=== PATIENT | female | born 1945 | race Two or more races ===

== ENCOUNTER 2021-06-14 12:51 | Emergency (ER) | payer OTHER ==
[~2021-06-14] VITALS: Ht 160 cm; Wt 65.8 kg
[2021-06-14 14:01] LABS: Basophils # (auto) 0.1 10 ^3/uL (0-0.2); Basophils % (auto) 2.3 % (0.0-2.0); Eosinophils # (auto) 0.1 10 ^3/uL (0-0.8); Eosinophils % (auto) 1.9 % (0.0-7.0); Hematocrit 40.1 % (36.0-46.0); Hemoglobin 13.2 g/dL (12.2-16.2); Lymphocytes # (auto) 2.6 10 ^3/uL (0.4-5.4); Lymphocytes % (auto) 41.2 % (10.0-50.0); Mean Corpuscular Hemoglobin 29.2 pg (28.0-32.0); Mean Corpuscular Hgb Conc. 32.9 g/dL (32.0-36.0); Mean Corpuscular Volume 88.6 fL (80.0-100.0); Monocytes # (auto) 0.3 10 ^3/uL (0-1.3); Monocytes % (auto) 4.6 % (0.0-12.0); Neutrophils # (auto) 3.1 10 ^3/uL (1.6-8.6); Nucleated Red Blood Cells % 0.1 %; Red Blood Cells 4.52 10^6/uL (4.0-5.20); Red Cell Distribution Width 12.8 % (11.8-14.3); White Blood Cell 6.2 10^3/uL (4.4-10.8)
[2021-06-14 14:29] LABS: Albumin 3.9 g/dL (3.4-5.0); Calcium 9.3 mg/dL (8.5-10.1); Potassium 3.4 mmol/L (3.5-5.1)
[2021-06-14 14:33] LABS: BUN/Creatinine Ratio 25.9; Bilirubin, Total 0.4 mg/dL (0.2-1.0); Total Protein 7.4 g/dL (6.4-8.2)
[2021-06-14 16:16] VITALS: BP 132/81
== END 2021-06-14 16:19 | disposition home or self-care (01) ==
LOC: EDBD 12:51 → ER 12:51
DX: R51.9 Headache, unspecified (principal); F41.9 Anxiety disorder, unspecified; E78.5 Hyperlipidemia, unspecified; Z90.49 Acquired absence of other specified parts of digestive tract; Z90.710 Acquired absence of both cervix and uterus; Z90.89 Acquired absence of other organs; Z88.8 Allergy status to other drugs, medicaments and biological substances
CPT/HCPCS: 36415; 70450; 80053; 85025

== ENCOUNTER 2024-06-14 19:28 | Inpatient (IN) | payer OTHER, MEDICAID ==
[~2024-06-14] VITALS: Ht 152.4 cm; Wt 59.4 kg
[2024-06-14] MEDS: cefTRIAXone 1GM/50ML D5W 50 ML IV ONE (03:05)
[2024-06-14] MEDS: SODIUM CHLORIDE 0.9% 1,000 ML IV ONE (03:05)
[2024-06-14] MEDS: SODIUM CHLORIDE 0.9% 500 ML IVB ONE (03:05)
[2024-06-14] MEDS: ACETAMINOPHEN 325 MG TAB PO ONE (03:05)
[2024-06-14] MEDS: SODIUM CHLORIDE 0.9% 1,000 ML IV SCH (03:58)
[2024-06-14 20:18] LABS: Basophils # (auto) 0 10 ^3/uL (0-0.2); Basophils % (auto) 0.3 % (0.0-2.0); Eosinophils # (auto) 0 10 ^3/uL (0-0.8); Lymphocytes # (auto) 0.3 10 ^3/uL (0.4-5.4); Mean Corpuscular Volume 86.8 fL (80.0-100.0); Monocytes # (auto) 0 10 ^3/uL (0-1.3); Monocytes % (auto) 0.5 % (0.0-12.0); Neutrophils # (auto) 2.4 10 ^3/uL (1.6-8.6); Red Blood Cells 4.38 10^6/uL (4.0-5.20); White Blood Cell 2.8 10^3/uL (4.4-10.8)
[2024-06-14 20:33] LABS: Eosinophils % (auto) 1.3 % (0.0-7.0); Lymphocytes % (auto) 11.2 % (10.0-50.0); Mean Corpuscular Hemoglobin 29.6 pg (28.0-32.0); Mean Corpuscular Hgb Conc. 34.1 g/dL (32.0-36.0); Neutrophils % (auto) 86.7 % (37.0-80.0); Nucleated Red Blood Cells % 0.6 %; Platelet Count (auto) 189 10^3/uL (140-450); Red Cell Distribution Width 13.2 % (11.8-14.3)
[2024-06-14 20:35] LABS: Alanine Aminotransferase 42 U/L (7-40); Albumin 4.5 g/dL (3.2-4.8); Alkaline Phosphatase 159 U/L (46-116); Anion Gap 10 (5-15); Aspartate Aminotransferase 60 U/L (13-40); BUN/Creatinine Ratio 16.2 (10.0-20.0); Blood Urea Nitrogen 11 mg/dL (9-23); Calcium 9.6 mg/dL (8.7-10.4); Carbon Dioxide 25 mmol/L (20-31); Chloride 106 mmol/L (98-107); Glucose 84 mg/dL (74-106); Potassium 3.5 mmol/L (3.5-5.1); Sodium 141 mmol/L (136-145); Total Protein 7.4 g/dL (5.7-8.2)
[2024-06-14 20:52] LABS: Lactic Acid w/Reflex 3.6 mmol/L (0.4-2.0)
[2024-06-14] MEDS ORDERED: ONDANSETRON HCL 4 MG/2 ML VIAL IV PRN (23:15)
[2024-06-14] MEDS ORDERED: NITROGLYCERIN 0.4 MG SL TAB SL PRN (23:15)
[2024-06-14] MEDS ORDERED: MORPHINE SULFATE INJ 2 MG/ml SYRG IV PRN (23:15)
[2024-06-14] MEDS ORDERED: DOCUSATE SOD 100 MG CAP PO PRN (23:15)
[2024-06-15 02:54] LABS: Hematocrit 33.7 % (36.0-46.0); Hemoglobin 11.8 g/dL (12.2-16.2); Mean Corpuscular Hemoglobin 29.8 pg (28.0-32.0); Mean Corpuscular Volume 85.2 fL (80.0-100.0); Platelet Count (auto) 173 10^3/uL (140-450); Red Blood Cells 3.96 10^6/uL (4.0-5.20); Red Cell Distribution Width 13.3 % (11.8-14.3); White Blood Cell 13.6 10^3/uL (4.4-10.8)
[2024-06-15 02:57] LABS: Basophils % (manual) 0 (0.0-2.0); Blast Cells 0; Eosinophils % (manual) 0 (0-7); Metamyelocytes % 0; Myelocytes % 0; Promyelocytes % 0; Reactive Lymphocytes 0
[2024-06-15 03:00] LABS: Chloride 105 mmol/L (98-107); Potassium 2.9 mmol/L (3.5-5.1); Sodium 137 mmol/L (136-145)
[2024-06-15 03:01] LABS: Anion Gap 7 (5-15); Carbon Dioxide 25 mmol/L (20-31)
[2024-06-15 03:02] LABS: Calcium 9.3 mg/dL (8.7-10.4)
[2024-06-15 03:06] LABS: BUN/Creatinine Ratio 15.5 (10.0-20.0); Blood Urea Nitrogen 11 mg/dL (9-23); Glucose 127 mg/dL (74-106)
[2024-06-15 03:11] LABS: Lactic Acid w/Reflex 2.1 mmol/L (0.4-2.0)
[2024-06-15 03:45] VITALS: PULSE 101; RESP 23; O2SAT 96
[2024-06-15] MEDS: POTASSIUM CHL 20 Meq TABLET PO ONE (03:58)
[2024-06-15 04:09] LABS: Urine Bacteria FEW /hpf (None Seen); Urine Blood Negative /uL (Negative); Urine Clarity Clear (Clear); Urine Color Light-Yellow (Yellow); Urine Mucus FEW (None Seen); Urine Protein, UAD Negative (Negative); Urine Urobilinogen Normal (Negative); Urine WBC 9 /hpf (0 - 5)
[2024-06-15 04:21] LABS: COVID19 ANTIGEN SOFIA FIA NEGATIVE (NEGATIVE); Rapid Influenza A Negative (Negative); Rapid Influenza B Negative (Negative)
[2024-06-15 04:30] LABS: Band Neutrophils % (manual) 8; Lymphocytes % (manual) 2 (10.0-50.0); Monocytes % (manual) 10 (0-12)
[2024-06-15 04:31] LABS: Platelet Estimate Adequate
[2024-06-15 08:00] VITALS: PULSE 89; RESP 16; O2SAT 95
[2024-06-15] MEDS: ENOXAPARIN SOD 40 MG/0.4 ML SYRINGE SC SCH (11:00)
[2024-06-15] MEDS: ACETAMINOPHEN 325 MG TAB PO PRN (11:13)
[2024-06-15 17:46] VITALS: PULSE 72; RESP 18; O2SAT 98
[2024-06-15 18:24] VITALS: BP 116/71; PULSE 83; RESP 18; TEMP 98.1; O2SAT 91
[2024-06-15 20:00] VITALS: PULSE 89
[2024-06-15] MEDS: cefTRIAXone 1GM/50ML D5W 50 ML IV SCH (20:51)
[2024-06-15 21:00] VITALS: BP 123/60; PULSE 83; RESP 17; TEMP 98.7; O2SAT 95
[2024-06-15] MEDS: MELATONIN 5 MG TAB PO ONE (23:06)
[2024-06-16] VITALS (7 sets, daily range): BP systolic 119–138; BP diastolic 58–70; PULSE 67–77; RESP 18–20; TEMP 98.5–99.3; O2SAT 95–96
[2024-06-16 07:14] LABS: Basophils # (auto) 0.1 10 ^3/uL (0-0.2); Basophils % (auto) 0.5 % (0.0-2.0); Eosinophils # (auto) 0.4 10 ^3/uL (0-0.8); Hematocrit 31.9 % (36.0-46.0); Lymphocytes # (auto) 1.2 10 ^3/uL (0.4-5.4); Lymphocytes % (auto) 9.8 % (10.0-50.0); Mean Corpuscular Hemoglobin 29.9 pg (28.0-32.0); Mean Corpuscular Hgb Conc. 34.4 g/dL (32.0-36.0); Mean Corpuscular Volume 86.9 fL (80.0-100.0); Monocytes # (auto) 0.7 10 ^3/uL (0-1.3); Monocytes % (auto) 5.9 % (0.0-12.0); Neutrophils # (auto) 10.1 10 ^3/uL (1.6-8.6); Neutrophils % (auto) 80.8 % (37.0-80.0); Platelet Count (auto) 148 10^3/uL (140-450); Red Blood Cells 3.67 10^6/uL (4.0-5.20); Red Cell Distribution Width 13.7 % (11.8-14.3); White Blood Cell 12.5 10^3/uL (4.4-10.8)
[2024-06-16 07:33] LABS: Anion Gap 8 (5-15); Carbon Dioxide 24 mmol/L (20-31); Chloride 108 mmol/L (98-107); Potassium 3.4 mmol/L (3.5-5.1); Sodium 140 mmol/L (136-145)
[2024-06-16 07:34] LABS: Calcium 8.9 mg/dL (8.7-10.4)
[2024-06-16 07:39] LABS: BUN/Creatinine Ratio 22.4 (10.0-20.0); Blood Urea Nitrogen 11 mg/dL (9-23); Glucose 108 mg/dL (74-106)
[2024-06-16] MEDS: HYDROcodone-ACET 10/325MG TAB PO PRN (15:31)
[2024-06-16] MEDS: POTASSIUM CHL 20 Meq TABLET PO ONE (16:05)
[2024-06-17] VITALS (7 sets, daily range): BP systolic 121–140; BP diastolic 60–73; PULSE 66–78; RESP 16–18; TEMP 98–99.6; O2SAT 94–97
[2024-06-17 08:03] LABS: Chloride 107 mmol/L (98-107); Potassium 4.1 mmol/L (3.5-5.1); Sodium 138 mmol/L (136-145)
[2024-06-17 08:04] LABS: Anion Gap 6 (5-15); Calcium 9.1 mg/dL (8.7-10.4); Carbon Dioxide 25 mmol/L (20-31)
[2024-06-17 08:09] LABS: BUN/Creatinine Ratio 19.6 (10.0-20.0); Basophils # (auto) 0.1 10 ^3/uL (0-0.2); Basophils % (auto) 0.6 % (0.0-2.0); Blood Urea Nitrogen 10 mg/dL (9-23); Eosinophils # (auto) 0.5 10 ^3/uL (0-0.8); Eosinophils % (auto) 4.7 % (0.0-7.0); Glucose 102 mg/dL (74-106); Hematocrit 29.1 % (36.0-46.0); Lymphocytes # (auto) 1.8 10 ^3/uL (0.4-5.4); Lymphocytes % (auto) 18.2 % (10.0-50.0); Mean Corpuscular Hemoglobin 29.8 pg (28.0-32.0); Mean Corpuscular Hgb Conc. 34.5 g/dL (32.0-36.0); Mean Corpuscular Volume 86.5 fL (80.0-100.0); Monocytes # (auto) 0.8 10 ^3/uL (0-1.3); Monocytes % (auto) 8.1 % (0.0-12.0); Neutrophils # (auto) 6.8 10 ^3/uL (1.6-8.6); Neutrophils % (auto) 68.4 % (37.0-80.0); Platelet Count (auto) 162 10^3/uL (140-450); Red Blood Cells 3.36 10^6/uL (4.0-5.20); Red Cell Distribution Width 13.4 % (11.8-14.3)
[2024-06-18] VITALS (8 sets, daily range): BP systolic 107–141; BP diastolic 53–70; PULSE 57–84; RESP 17–19; TEMP 97.9–98.7; O2SAT 91–97
[2024-06-18 05:32] LABS: Basophils # (auto) 0.1 10 ^3/uL (0-0.2); Basophils % (auto) 0.7 % (0.0-2.0); Eosinophils # (auto) 0.5 10 ^3/uL (0-0.8); Eosinophils % (auto) 6.1 % (0.0-7.0); Hematocrit 29.8 % (36.0-46.0); Hemoglobin 10.5 g/dL (12.2-16.2); Lymphocytes % (auto) 26.6 % (10.0-50.0); Mean Corpuscular Hgb Conc. 35.1 g/dL (32.0-36.0); Mean Corpuscular Volume 85.6 fL (80.0-100.0); Monocytes # (auto) 0.8 10 ^3/uL (0-1.3); Neutrophils # (auto) 4.3 10 ^3/uL (1.6-8.6); Neutrophils % (auto) 56.6 % (37.0-80.0); Nucleated Red Blood Cells % 0.1 %; Platelet Count (auto) 193 10^3/uL (140-450); Red Blood Cells 3.48 10^6/uL (4.0-5.20); Red Cell Distribution Width 13.7 % (11.8-14.3); White Blood Cell 7.6 10^3/uL (4.4-10.8)
[2024-06-18 05:33] LABS: Chloride 106 mmol/L (98-107); Potassium 3.8 mmol/L (3.5-5.1); Sodium 137 mmol/L (136-145)
[2024-06-18 05:34] LABS: Anion Gap 6 (5-15); Calcium 9.4 mg/dL (8.7-10.4); Carbon Dioxide 25 mmol/L (20-31)
[2024-06-18 05:39] LABS: Blood Urea Nitrogen 9 mg/dL (9-23); Glucose 116 mg/dL (74-106)
[2024-06-18] MEDS: cefTRIAXone 2GM/50ML D5W 50 ML IV SCH (10:04)
[2024-06-18] MEDS ORDERED: CEFD300C2 PO (16:45)
[2024-06-18] MEDS ORDERED: ATOR20TA50 PO (16:46)
[2024-06-18] MEDS ORDERED: ASPI-543 PO (16:46)
[2024-06-19 01:00] VITALS: BP 131/59; PULSE 61; RESP 18; TEMP 98.7; O2SAT 96
[2024-06-19 05:00] VITALS: BP 139/68; PULSE 63; RESP 18; TEMP 97.5; O2SAT 97
[2024-06-19 06:33] LABS: Basophils # (auto) 0.1 10 ^3/uL (0-0.2); Basophils % (auto) 0.7 % (0.0-2.0); Eosinophils # (auto) 0.5 10 ^3/uL (0-0.8); Eosinophils % (auto) 4.8 % (0.0-7.0); Hematocrit 32.3 % (36.0-46.0); Hemoglobin 11.2 g/dL (12.2-16.2); Lymphocytes # (auto) 2.6 10 ^3/uL (0.4-5.4); Lymphocytes % (auto) 26.7 % (10.0-50.0); Mean Corpuscular Hemoglobin 29.7 pg (28.0-32.0); Mean Corpuscular Hgb Conc. 34.6 g/dL (32.0-36.0); Mean Corpuscular Volume 85.8 fL (80.0-100.0); Monocytes % (auto) 10.4 % (0.0-12.0); Neutrophils # (auto) 5.6 10 ^3/uL (1.6-8.6); Neutrophils % (auto) 57.4 % (37.0-80.0); Nucleated Red Blood Cells % 0.1 %; Platelet Count (auto) 246 10^3/uL (140-450); Red Blood Cells 3.76 10^6/uL (4.0-5.20); Red Cell Distribution Width 13.4 % (11.8-14.3); White Blood Cell 9.7 10^3/uL (4.4-10.8)
[2024-06-19 06:49] LABS: Chloride 103 mmol/L (98-107); Potassium 3.9 mmol/L (3.5-5.1); Sodium 136 mmol/L (136-145)
[2024-06-19 06:50] LABS: Anion Gap 8 (5-15); Calcium 9.6 mg/dL (8.7-10.4); Carbon Dioxide 25 mmol/L (20-31)
[2024-06-19 06:55] LABS: BUN/Creatinine Ratio 27.3 (10.0-20.0); Blood Urea Nitrogen 15 mg/dL (9-23); Glucose 119 mg/dL (74-106)
[2024-06-19 08:00] VITALS: PULSE 71; PULSE 85; RESP 22
[2024-06-19 09:00] VITALS: BP_SYST 128; BP_SYST 160; BP_DIAS 72; BP_DIAS 81; PULSE 85; RESP 22; TEMP 97.8; O2SAT 92
[2024-06-19 12:20] VITALS: BP 128/72; PULSE 85; RESP 22; TEMP 97.8; O2SAT 92
== END 2024-06-19 13:05 | disposition home health service (06) | DRG 871 ==
LOC: EDUNIT# 19:28 → EDSEX 19:28 → ER 19:28 → EDBD 19:28 → TELE 23:26 → TELE-EAST 06-15 17:50
PROVIDERS: ADMIT Nurse Practitioner Family; ATTEND Nurse Practitioner Family
DX: A41.50 Gram-negative sepsis, unspecified (principal); G93.41 Metabolic encephalopathy; N39.0 Urinary tract infection, site not specified; R65.20 Severe sepsis without septic shock; E78.5 Hyperlipidemia, unspecified; Z20.822 Contact with and (suspected) exposure to COVID-19; I10 Essential (primary) hypertension; R74.01 Elevation of levels of liver transaminase levels; Z85.038 Personal history of other malignant neoplasm of large intestine; Z90.710 Acquired absence of both cervix and uterus; Z90.49 Acquired absence of other specified parts of digestive tract; Z88.8 Allergy status to other drugs, medicaments and biological substances; Z86.73 Personal history of transient ischemic attack (TIA), and cerebral infarction without residual deficits; Z80.42 Family history of malignant neoplasm of prostate; Z83.3 Family history of diabetes mellitus
CPT/HCPCS: 36415; 70450; 70551; 71045; 76705; 76775; 80048; 80053; 81001; 83605; 85007; 85025; 85027; 87040; 87077; 87086; 87088; 87186; 87426; 87804; 93005; 96365; 97163; 99291; G0378

== ENCOUNTER 2025-01-04 12:17 | Inpatient (IN) | payer OTHER, MEDICAID ==
[~2025-01-04] VITALS: Ht 152.4 cm; Wt 60.1 kg
[~2025-01-04 12:17] MED LIST: ASPI-543 PO; ATOR20TA50 PO; CEFD300C2 PO
--- NOTE | 2025-01-04 12:38 | ED.PDOC ---
HPI (NEURO) HPI Comments 79 year old female brought in by grandpriscilla presents to the ED with chief complaint of R facial numbness and weakness. Patient reports that since last night at 10:30pm, she has been experiencing right sided facial droop and numbness with associated right ear pain, right upper and lower extremity weakness. 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 Patient notes that for the last 2 days she has had right sided ear pain, but it has since resolved. Patient states that she is now experiencing a headache as of today. Patient denies any chest pain, SOB, LOC, dizziness, hearing loss, vision loss, nausea, or vomiting. Time Seen by MD: 12:33 Primary Care Provider: PHAM Dela Cruz Notes: Nurses Notes, Medications, Allergies Information Source: Patient, Relative Mode of Arrival: Wheelchair Severity: Moderate Dizziness/Weakness Severity: Unable to do activities Timing: Hours Duration: Since onset Headache Quality: Aching Headache Location: Generalized Weakness Location: (R) Sided, Facial Numbness Location: Facial Onset: At rest Circumstances: Spontaneous Symptoms: Weakness, Numbness Before: Normal History of: CVA, Hypertension Modifying factors: Nothing Associated Signs and Symptoms: Headache, Weakness, Numbness Past Medical History PAST MEDICAL HISTORY: Cancer, CVA, GERD, High Lipids, HTN, UTI'S Surgical History: Appendectomy, Hysterectomy, Tonsillectomy Surgical History (Other): Colon surgery MANAGER INTEL History: Denies all MANAGER INTEL Hx Family History Family History: Reviewed,noncontributory to illness, Family hx of Cancer Social History Smoker: Non-Smoker Alcohol: Denies ETOH Use Drugs: Denies Drug Use Lives In: Home Constitutional: denies: chills, diaphoresis, fatigue, fever, malaise, sweats, weakness, others EENTM: reports: ear pain; denies: blurred vision, double vision, ear bleeding, ear discharge, ear drainage, ear ringing, eye pain, eye redness, hearing loss, mouth pain, mouth swelling, nasal discharge, nose bleeding, nose congestion, nose pain, photophobia, tearing, throat pain, throat swelling, voice changes, others Respiratory: denies: cough, hemoptysis, orthopnea, SOB at rest, shortness of breath, SOB with excertion, stridor, wheezing, others Cardiovascular: denies: chest pain, dizzy spells, diaphoresis, Dyspnea on exertion, edema, irregular heart beat, left arm pain, lightheadedness, palpitations, PND, syncope, others Gastrointestinal: denies: abdomen distended, abdominal pain, blood streaked bowels, constipated, diarrhea, dysphagia, difficulty swallowing, hematemesis, melena, nausea, poor appetite, poor fluid intake, rectal bleeding, rectal pain, vomiting, others Genitourinary: denies: abnormal vagina bleeding, burning, dyspareunia, dysuria, flank pain, frequency, hematuria, incontinence, pain, , vagina discharge, urgency, others Neurological: reports: headache, right sided numbness, right sided weakness, others (Facial droop); denies: dizziness, fainting, left sided numbness, left sided weakness, numbness, paresthesia, pre-existing deficit, seizure, speech problems, tingling, tremors, weakness Musculoskeletal: denies: back pain, gout, joint pain, joint swelling, muscle pain, muscle stiffness, neck pain, others Integumetry: denies: bruises, change in color, change in hair/nails, dryness, laceration, lesions, lumps, rash, wounds, others Allergic/Immunocompromised: denies: Difficulty Healing, Frequent Infections, Hives, Itching, others Hematologic/Lymphatic: denies: anemia, blood clots, easy bleeding, easy bruis ing, swollen glands, others Endocrine: denies: excessive hunger, excessive sweating, excessive thirst, exc essive urination, flushing, intolerance to cold, intolerance to heat, unexplained weight gain, unexplained weight loss, others Psychiatric: denies: anxiety, bipolar disorder, depression, hopeless, panic disorder, schizophrenia, sleepless, suicidal, others All Other Systems: Reviewed and Negative Physical Exam General Appearance: No Apparent Distress HEENT: PERRL/EOMI, Other (Right facial droop) Neck: Full Range of Motion, Non-Tender, Normal Inspection, Supple Respiratory: Lungs Clear, No Accessory Muscle Use, No Respiratory Distress, Normal Breath Sounds Cardiovascular: No Edema, No JVD, Regular Rate/Rhythm Breast Exam: Deferred Gastrointestinal: Non Tender, Soft Genitalia: Deferred Pelvic: Deferred Rectal: Deferred Extremities: Normal inspection, Normal range of motion, Non-tender, No pedal edema Musculoskeletal : Apperance: Normal Neurologic: Alert (Oriented x4), community fundraiser II-XII nml as Tested (Except for cranial nerve 7. Right facial weakness. No forehead sparing, patient unable to raise right eyebrow. Right eyelid ptosis.), Motor Weakness (Subtle right upper and lower extremity weakness as compared to the left upper and lower extremities. Left upper extremity pronator drift. Right lower extremity drift.), Normal Affect, Normal Mood, No Sensory Deficits Cerebellar Function: NOT DONE Reflexes: NOT DONE Skin: Dry, Normal Color, Warm Lymphatic: NOT DONE EKG EKG : Comments Sinus tach, rate 106, intervals, left axis deviation, possible old inferior infarct, nonspecific T changes. Was a procedure done? Was a procedure done?: No Differential Diagnosis (SZ) Seizure: CVA/TIA, Hypocalcemia, Hypoglycemia, Hyponatremia CVA: Franco's Palsy, Encephalopathy, Mass Lesion General Weakness: Dysrhythmia Headache: Epidural Hemorrhage, Intracerebral Hemorrhage, Subarachnoid Hemorrhage, Subdural Hemorrhage X-Ray, Labs, Meds, VS Vital Signs Date Time Temp Pulse Resp B/P (MAP) Pulse Ox O2 Delivery O2 Flow Rate FiO2 01/04/25 15:00 78 13 126/69 (88) 92 01/04/25 14:06 90 17 145/77 (99) 93 01/04/25 12:56 Room Air* 0 21 01/04/25 12:56 99.6 90 14 136/79 (98) 96 99.6 01/04/25 12:22 106 01/04/25 12:17 99.6 60 18 157/78 (104) 98 99.6 Lab Test 01/04/25 15:10 01/04/25 13:18 01/04/25 12:58 Range/Units Troponin I High Sensitivity 7 6 </=34 ng/L Urine Color Light-yellow Yellow Urine Clarity Clear Clear Urine pH 6.5 5.0-9.0 Urine Specific Mozelle 1.008 1.001-1.035 Urine Protein Negative Negative Urine Ketones Trace Negative Urine Blood Negative Negative /uL Urine Nitrite 2+ H Negative Urine Bilirubin Negative Negative Urine Urobilinogen Normal Negative mg/dL Urine Leukocyte Esterase Negative Negative /uL Urine RBC None seen 0 - 4 /hpf Urine Microscopic WBC 2 0-5 /HPF Urine Squamous Epithelial Cells None seen <5 /hpf Urine Bacteria Few H None Seen /hpf Urine Glucose Normal Normal mg/dL White Blood Count 7.1 4.4-10.8 10^3/uL Red Blood Count 4.87 4.0-5.20 10^6/uL Hemoglobin 14.4 12.2-16.2 g/dL Hematocrit 42.3 36.0-46.0 % Mean Corpuscular Volume 86.8 80.0-100.0 fL Mean Corpuscular Hemoglobin 29.6 28.0-32.0 pg Mean Corpuscular Hemoglobin Concent 34.1 32.0-36.0 g/dL Red Cell Distribution Width 13.7 11.8-14.3 % Platelet Count 263 140-450 10^3/uL Mean Platelet Volume 8.0 6.9-10.8 fL Neutrophils (%) (Auto) 45.2 37.0-80.0 % Lymphocytes (%) (Auto) 42.9 10.0-50.0 % Monocytes (%) (Auto) 4.9 0.0-12.0 % Eosinophils (%) (Auto) 4.8 0.0-7.0 % Basophils (%) (Auto) 2.2 H 0.0-2.0 % Neutrophils # (Auto) 3.2 1.6-8.6 10 ^3/uL Lymphocytes # (Auto) 3.0 0.4-5.4 10 ^3/uL Monocytes # (Auto) 0.4 0-1.3 10 ^3/uL Eosinophils # (Auto) 0.3 0-0.8 10 ^3/uL Basophils # (Auto) 0.2 0-0.2 10 ^3/uL Nucleated Red Blood Cells 0.1 % Sodium Level 139 136-145 mmol/L Potassium Level 3.8 3.5-5.1 mmol/L Chloride Level 104 98-107 mmol/L Carbon Dioxide Level 26 20-31 mmol/L Anion Gap 9 5-15 Blood Urea Nitrogen 13 9-23 mg/dL Creatinine 0.61 0.550-1.02 mg/dL Glomerular Filtration Rate Calc 90 >90 mL/min BUN/Creatinine Ratio 21.3 H 10.0-20.0 Serum Glucose 110 H 74-106 mg/dL Calcium Level 10.3 8.7-10.4 mg/dL Total Bilirubin 0.6 0.2-1.0 mg/dL Aspartate Amino Transferase (AST) 22 13-40 U/L Alanine Aminotransferase (ALT) 25 7-40 U/L Alkaline Phosphatase 88 46-116 U/L B-Type Natriuretic Peptide 7.03 0-100 pg/mL Total Protein 8.0 5.7-8.2 g/dL Albumin 5.1 H 3.2-4.8 g/dL Current Medications Medications (Trade) Dose Ordered Sig/Abdirahman Route Start Time Stop Time Status Last Admin Acetaminophen (Tylenol Tablet Or Capsule) 1,000 mg ONCE ONCE PO 01/04/25 12:45 01/04/25 12:46 DC 01/04/25 13:24 Aspirin 325 mg ONCE ONCE PO 01/04/25 13:00 01/04/25 13:01 DC 01/04/25 13:24 CT Head CVA: FINDINGS: There is no acute intracranial hemorrhage. No mass effect or midline shift. Chronic appearing bilateral basal ganglia lacunar infarcts are stable. Encephalomalacia in the left frontal lobe appears stable. Scattered areas of hypoattenuation are seen in the periventricular and subcortical white matter, which are nonspecific but most likely sequelae of small vessel ischemic disease. The ventricles and sulci are within normal limits in size for age. Basal cisterns are patent. The calvarium is unremarkable. Mild mucosal thicke bear of the paranasal sinuses. Mastoid air cells are clear. IMPRESSION: 1. No CT evidence of acute intracranial abnormality. 2. Nonacute findings as described above. Chest XR: IMPRESSION: No acute intrathoracic abnormality. CT Angio Head/Neck: IMPRESSION: No acute abnormal CT angiographic findings of the head and neck without stenosis or occlusion seen. X-Ray, Labs, Meds, VS Comment 79-year-old female with history of prior CVA and residual right lower extremity weakness dyslipidemia, hypertension and GERD brought in by family for evaluation of right facial weakness since around 2229 yesterday Vitals remarkable for temperature 99.6, BP 157/78 Exam remarkable for non forehead sparing right facial droop, right eyelid ptosis, left pronator drift, right upper and lower extremity subtle weakness, right lower extremity drift Rhythm strip independently interpreted by me: Sinus tach, rate 106, no ectopy. CT head, chest x-ray, and CT angio head and neck unremarkable CBC, CMP, BNP and 2 serial troponins unremarkable for any abnormality of acute significance. UA abnormal consistent with mild UTI Patient treated with the following in the ED: Code stroke was initiated, the patient was evaluated by stroke neurologist on video. I discussed the case with her. She recommended CT angio head and neck, and hospital admission for brain MRI. 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 Tylenol 1 g p.o., Aspirin 325 mg p.o., Rocephin 1 g IV On re-evaluation, there are no new neurologic changes. Vitals were stable. Plan is to admit the patient for MRI of the brain and neurology evaluation. Case discussed with Dr. Geronimo, who will admit the patient. Images Reviewed?: Images reviewed and evaluated by me Time of 1ST Reevaluation: 13:33 Reevaluation 1ST: Unchanged Patient Education/Counseling: Diagnosis, Treatment Family Education/Counseling: Diagnosis, Treatment Additional Information -Reviewed patient's previous visit(s): 06/14/24 for fever - The following tests were ordered, and results were reviewed by me: CBC, CMP, BNP, UA, Troponin, EKG, Chest XR, CT Head CVA, CT Angio Head/neck - Additional information was gathered from interviewing the following independent Historian: tello - I reviewed and agreed with the following test results read by other provider: Chest XR, CT Head CVA, CT Angio Head/neck - I discussed treatments and results with medical personnel and: patient and gr bereniceson Comprehensive systems review obtained and negative except for what is stated in the HPI. Departure 1 Departure Time of Disposition: 16:43 Impression: Primary Impression: Acute CVA (cerebrovascular accident) Additional Impression: UTI (urinary tract infection) Qualified Codes: N39.0 - Urinary tract infection, site not specified Disposition: 09 ADMITTED INPATIENT Admit to: Tele Condition: Guarded Critical Care Note Critical Care Time?: Yes (35 min-critical care time only) Critical care comment: Critical care time including multiple bedside re-evaluations, review of lab and imaging studies, and discussion of the case with the admitting and consulting providers. Patient is high risk for neurologic decompensation. Stability Stability form required: No Heart Score Heart Score: Heart Score Response (Comments) Value History N/A 0 EKG N/A 0 Age N/A 0 Risk Factors N/A 0 Troponin N/A 0 Total 0 I personally scribed for TYRON GUZMAN MD ([facility] on 4/19/25 at 12:38. Electronically submitted by Jf Anthony ([email or web address]). I personally scribed for TYRON GUZMAN MD ([email or web address]) on 01/04/25 at 12:59. Electronically submitted by Jf Anthony ([email or web address]). I personally scribed for TYRON GUZMAN MD ([email or web address]) on 01/04/25 at 13:17. Electronically submitted by Jf Anthony ([email or web address]). I personally scribed for TYRON GUZMAN MD ([email or web address]) on 01/04/25 at 14:12. Electronically submitted by Jf Anthony ([email or web address]). I personally scribed for TYRON GUZMAN MD ([email or web address]) on 01/04/25 at 14:35. Electronically submitted by Jf Anthony ([email or web address]). TYRON GUZMAN MD Jan 04, 2025 12:38
--- NOTE | 2025-01-04 13:06 | DVHINCON2 ---
Date of Consultation Date Date: 01/04/25 [facility] # Demographics Consult Type: Acute Stroke Level 2 (4.5-24 hrs) Patient Location: Emergency Room First Name: arnulfo Last Name: saturnino Date of : 1945 Age: 79 Gender: Female Facility: [facility] Time of Initial Page (): 01/04/2025 12:54 Time of Return Call (): 01/04/2025 12:54 # HPI Chief Complaint: - weakness (focal) History: 79yof with previous stroke (2007, mild RLE weakness) who p/w R sided weakness. Last Known Normal: - I have collected independent history specific to time last normal or last known well. We have collaborated with the provider and at this time, we have the most current timeline with the information that is available. 10PM on 01/03/25 # Scores Time of exam and NIHSS (): 01/04/2025 12:57 Level of Consciousness 1a: [0] = Alert; keenly responsive LOC Questions 1b: [0] = Answers both questions correctly LOC Commands 1c: [0] = Performs both tasks correctly Best Gaze 2: [0] = Normal Visual 3: [0] = No visual loss Facial Palsy 4: [2] = Partial paralysis Motor Arm Left 5a: [0] = No drift Motor Arm Right 5b: [0] = No drift Motor Leg Left 6a: [0] = No drift Motor Leg Right 6b: [1] = Drift Limb Ataxia 7: [0] = Absent Sensory 8: [0] = Normal Best Language 9: [0] = No aphasia Dysarthria 10: [1] = [id number] dysarthria Extinction and Inattention 11: [0] = No abnormality NIHSS Total: 4 # Exam Cranial Nerves: Forehead weakness in addition to facial palsy # ROS Eyes: - no diplopia ENT: - no difficulty swallowing # Data Time Head CT personally read by me (): 01/04/2025 12:[address]: - no bleed - preliminarily reviewed by me, please refer to radiology read for official reading L BG infarct # 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 Patient also has forehead involvement but endorses worsening extremity weakness which is not typical for Franco's Palsy. Recommend MR brain for further workup, if stroke on MRI would proceed with all the rest of stroke workup including TTE with bubble, telemetry monitoring, lipid panel, A1c. 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 treatment (Prednisone 60mg x 5 days followed by a 5 day taper by 10mg per day and Valacyclovir 1000mg TID x 1 week (or acyclovir 400mg 5x a day for 1 week)) # Plan Thrombolytic/Intervention: NOT IV Thrombolysis or IA Intervention candidate Thrombolytic Exclusion: > 4.5 hours Intraarterial Exclusion: - clinical exam not consistent with presence of large vessel occlusion (LVO), can reconsider if LVO found on vascular imaging Labs: Full infectious and metabolic workup for causes of recrudescence Imaging: (urgency: STAT): - CT Angiogram Head and CT Angiogram Neck AND call back with results if abnormal Imaging: (urgency: routine): - MRI Brain without contrast Other: - If patient has any neurological deterioration please call me back immediately # Logistics Attestation of consult completion: The patient is located at: [facility]. Facility staff participated in the visit. I performed this telemedicine visit from my offsite office utilizing interactive 2 way audio and visual telecommunication technology. Total time spent in telemedicine encounter: I spent 24 minutes reviewing clinical data and/or imaging, obtaining history, examining the patient, communicating with the onsite care team, and in preparation of this report. # Demographics First Name: arnulfo Last Name: saturnino Facility: [facility] History of Present Illness History of Present Illness Arnulfo Mejia is a 79 year old female who presents with Family History Family History Family History: Patient reports no known family medical history. Allergies: Coded Allergies: Clopidogrel (Verified Allergy, Severe, 06/14/21) Home Meds Active Scripts Atorvastatin Calcium (ATORVASTATIN CALCIUM) 20 Mg Tab, 1 TAB PO DAILY, #60 TAB 5 Refills Prov:TAMMIE MILLER MD 06/18/24 Aspirin (Aspir-Low) 81 Mg Tab, 81 MG PO DAILY, #60 TAB Prov:TAMMIE MILLER MD 06/18/24 Cefdinir (Cefdinir) 300 Mg Cap, 1 CAP PO BID for 10 Days, #20 CAP Prov:TAMMIE MILLER MD 06/18/24 Physical Examination General Examination: Last Vital sign Vital Signs Date Time Temp Pulse Resp B/P (MAP) Pulse Ox O2 Delivery O2 Flow Rate FiO2 01/04/25 12:22 106 General: General: No apparent distress, appears comfortable. Cooperative. Neurological Examination: Neurological Examination: Mental Status: Cranial Nerves: Motor Examination: Reflexes: Sensory: Coordination: Gait: Assessment/Plan Assessment/Plan [facility] # Demographics Consult Type: Acute Stroke Level 2 (4.5-24 hrs) Patient Location: Emergency Room First Name: arnulfo Last Name: saturnino Date of : 1945 Age: 79 Gender: Female Facility: [facility] Time of Initial Page (): 01/04/2025 12:54 Time of Return Call (): 01/04/2025 12:54 # HPI Chief Complaint: - weakness (focal) History: 79yof with previous stroke (2007, mild RLE weakness) who p/w R sided weakness. Last Known Normal: - I have collected independent history specific to time last normal or last known well. We have collaborated with the provider and at this time, we have the most current timeline with the information that is available. 10PM on 01/03/25 # Scores Time of exam and NIHSS (): 01/04/2025 12:57 Level of Consciousness 1a: [0] = Alert; keenly responsive LOC Questions 1b: [0] = Answers both questions correctly LOC Commands 1c: [0] = Performs both tasks correctly Best Gaze 2: [0] = Normal Visual 3: [0] = No visual loss Facial Palsy 4: [2] = Partial paralysis Motor Arm Left 5a: [0] = No drift Motor Arm Right 5b: [0] = No drift Motor Leg Left 6a: [0] = No drift Motor Leg Right 6b: [1] = Drift Limb Ataxia 7: [0] = Absent Sensory 8: [0] = Normal Best Language 9: [0] = No aphasia Dysarthria 10: [1] = [id number] dysarthria Extinction and Inattention 11: [0] = No abnormality NIHSS Total: 4 # Exam Cranial Nerves: Forehead weakness in addition to facial palsy # ROS Eyes: - no diplopia ENT: - no difficulty swallowing # Data Time Head CT personally read by me (): 01/04/2025 12:[address]: - no bleed - preliminarily reviewed by me, please refer to radiology read for official reading L BG infarct # 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 Patient also has forehead involvement but endorses worsening extremity weakness which is not typical for Franco's Palsy. Recommend MR brain for further workup, if stroke on MRI would proceed with all the rest of stroke workup including TTE with bubble, telemetry monitoring, lipid panel, A1c. 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 treatment (Prednisone 60mg x 5 days followed by a 5 day taper by 10mg per day and Valacyclovir 1000mg TID x 1 week (or acyclovir 400mg 5x a day for 1 week)) # Plan Thrombolytic/Intervention: NOT IV Thrombolysis or IA Intervention candidate Thrombolytic Exclusion: > 4.5 hours Intraarterial Exclusion: - clinical exam not consistent with presence of large vessel occlusion (LVO), can reconsider if LVO found on vascular imaging Labs: Full infectious and metabolic workup for causes of recrudescence Imaging: (urgency: STAT): - CT Angiogram Head and CT Angiogram Neck AND call back with results if abnormal Imaging: (urgency: routine): - MRI Brain without contrast Other: - If patient has any neurological deterioration please call me back immediately # Logistics Attestation of consult completion: The patient is located at: [facility]. Facility staff participated in the visit. I performed this telemedicine visit from my offsite office utilizing interactive 2 way audio and visual telecommunication technology. Total time spent in telemedicine encounter: I spent 24 minutes reviewing clinical data and/or imaging, obtaining history, examining the patient, communicating with the onsite care team, and in preparation of this report. # Demographics First Name: arnulfo Last Name: saturnino Facility: [facility] Plan discussed with: Patient SONIA CAMPA MD Jan 04, 2025 13:06
--- NOTE | 2025-01-04 13:12 | DVH ---
CLINICAL INFORMATION: 79 years old, Female; rule out stroke. TECHNIQUE: Axial imaging was obtained through the brain without contrast. Coronal and sagittal reform atted images were obtained, reviewed, and stored. Images were reviewed in brain and bone windows. Al l CT scans at this medical facility are performed using dose modulation techniques as appropriate to a performed exam including the following: Automated exposure control was utilized; adjustment of the MA and/or KV according to patient size; and use of iterative reconstruction technique. CTDIvol = 66.2 mGy DLP = 1171.85 mGy-cm COMPARISON: CT head dated 06/15/2024 and MRI dated 06/18/2024 FINDINGS: There is no acute intracranial hemorrhage. No mass effect or midline shift. Chronic appeari ng bilateral basal ganglia lacunar infarcts are stable. Encephalomalacia in the left frontal lobe oleg ears stable. Scattered areas of hypoattenuation are seen in the periventricular and subcortical white matter, which are nonspecific but most likely sequelae of small vessel ischemic disease. The ventric les and sulci are within normal limits in size for age. Basal cisterns are patent. The calvarium is unremarkable. Mild mucosal thickening of the paranasal sinuses. Mastoid air cells are clear. IMPRESSION: 1. No CT evidence of acute intracranial abnormality. 2. Nonacute findings as described above.
[2025-01-04 13:16] LABS: Basophils # (auto) 0.2 10 ^3/uL (0-0.2); Basophils % (auto) 2.2 % (0.0-2.0); Eosinophils # (auto) 0.3 10 ^3/uL (0-0.8); Eosinophils % (auto) 4.8 % (0.0-7.0); Hematocrit 42.3 % (36.0-46.0); Hemoglobin 14.4 g/dL (12.2-16.2); Lymphocytes % (auto) 42.9 % (10.0-50.0); Mean Corpuscular Hemoglobin 29.6 pg (28.0-32.0); Mean Corpuscular Hgb Conc. 34.1 g/dL (32.0-36.0); Mean Corpuscular Volume 86.8 fL (80.0-100.0); Monocytes # (auto) 0.4 10 ^3/uL (0-1.3); Monocytes % (auto) 4.9 % (0.0-12.0); Neutrophils # (auto) 3.2 10 ^3/uL (1.6-8.6); Neutrophils % (auto) 45.2 % (37.0-80.0); Nucleated Red Blood Cells % 0.1 %; Platelet Count (auto) 263 10^3/uL (140-450); Red Blood Cells 4.87 10^6/uL (4.0-5.20); Red Cell Distribution Width 13.7 % (11.8-14.3); White Blood Cell 7.1 10^3/uL (4.4-10.8)
[2025-01-04] MEDS: ACETAMINOPHEN 500 MG TAB or CAP PO ONE (13:24)
[2025-01-04] MEDS: ASPirin 325 MG TAB PO ONE (13:24)
[2025-01-04 13:36] LABS: Alanine Aminotransferase 25 U/L (7-40); Alkaline Phosphatase 88 U/L (46-116); Anion Gap 9 (5-15); Aspartate Aminotransferase 22 U/L (13-40); BUN/Creatinine Ratio 21.3 (10.0-20.0); Blood Urea Nitrogen 13 mg/dL (9-23); Calcium 10.3 mg/dL (8.7-10.4); Carbon Dioxide 26 mmol/L (20-31); Chloride 104 mmol/L (98-107); Potassium 3.8 mmol/L (3.5-5.1); Sodium 139 mmol/L (136-145)
[2025-01-04 13:37] LABS: Bilirubin, Total 0.6 mg/dL (0.2-1.0)
[2025-01-04 13:39] LABS: Albumin 5.1 g/dL (3.2-4.8); Glucose 110 mg/dL (74-106)
[2025-01-04 13:40] LABS: Urine Bacteria FEW /hpf (None Seen); Urine Blood Negative /uL (Negative); Urine Clarity Clear (Clear); Urine Protein, UAD Negative (Negative); Urine Specific Gravity 1.008 (1.001-1.035); Urine Squamous Epithelial Cell None Seen /hpf (<5); Urine Urobilinogen Normal (Negative); Urine WBC 2 /HPF (0-5); Urine pH 6.5 (5.0-9.0)
--- NOTE | 2025-01-04 13:40 | ECG ---
[facility] Heart Test Date: 2025-01-04 Test Time: 12:22:55 Pat Name: KEM LORA Department: ER Room: Gender: F Aviculturist: AMRIT : 1945 Requested By: TYRON SPENCE Order Number: [id number] Reading MD: Measurements Intervals Sylvia Rate: 106 P: 45 NJ: 150 QRS: -19 QRSD: 103 T: 66 QT: 343 QTc: 456 Interpretive Statements Sinus tachycardia Inferior infarct, old Consider anterior infarct Baseline wander in lead(s) I,V5 Please click the below link to view image of tracing.
[2025-01-04 13:42] LABS: Urine Color Light-Yellow (Yellow)
--- NOTE | 2025-01-04 13:43 | DVH ---
XY CHEST PORTABLE, HISTORY: L facial weakness COMPARISON: XY CHEST PORTABLE on DOS: 06/14/24 XY CHEST PORTABLE on DOS: 06/14/24 TECHNICAL DATA: 1 view of the chest was obtained. FINDINGS: Lines and tubes: None Cardiomediastinal silhouette: normal Pulmonary vasculature: normal Lung expansion: normal Lung airspace: normal Lung interstitium: normal Pleura: normal Pneumothorax: no Bones: Unremarkable Other: no IMPRESSION: No acute intrathoracic abnormality.
[2025-01-04] MEDS: IOHEXOL 350 MG/ML 100ML IJ ONE (13:48)
--- NOTE | 2025-01-04 14:31 | DVH ---
CT ANGIO HEAD/Neck INDICATION: R facial weakness EXAM DATE: 01/04/2025 01:47 PM COMPARISON: None RADIATION DOSE: CTDIvol: 22.43 mGy, DLP: 786.0 mGy*cm PROCEDURE: CT angiogram images were obtained of the head and neck. Coronal and sagittal reformatted i mages were created as well as 3D and/or MIP reconstructions. All CT scans at this medical facility are performed using dose modulation techniques as appropriate t o a performed exam including the following: Automated exposure control was utilized; adjustment of th e MA and/or KV according to patient size; and use of iterative reconstruction technique. FINDINGS: Head: Please see CT head from same day for further details. On the CT angiographic images, the internal carotid arteries are normal in caliber from the skull bas e to their bifurcations. The anterior and middle cerebral arteries and their branches appear normal. The anterior communicating artery appears normal. The bilateral posterior communicating arteries are normal. The vertebral arteries are codominant. The vertebral, basilar, superior cerebellar, and poste rior cerebral arteries are normal in caliber. No aneurysm, arteriovenous malformation, or stenosis is visible. Neck: The common carotid, internal carotid, external carotid, and vertebral arteries are normal in caliber. The vertebral arteries are codominant. The visualized intracranial arteries are normal. There is no evidence of contrast extravasation, filling defects, stenosis, or dissection. The pharynx and airway are normal. Multiple small thyroid nodules are seen. The submandibular, and p arotid glands appear unremarkable.. No lymphadenopathy is seen. Mosiac lung attenuation is seen. IMPRESSION: No acute abnormal CT angiographic findings of the head and neck without stenosis or occlusion seen.
[2025-01-04] MEDS ORDERED: MORPHINE SULFATE INJ 2 MG/ml SYRG IV PRN (18:00)
[2025-01-04] MEDS ORDERED: NITROGLYCERIN 0.4 MG SL TAB SL PRN (18:00)
[2025-01-04] MEDS ORDERED: ONDANSETRON HCL 4 MG/2 ML VIAL IV PRN (18:00)
[2025-01-04] MEDS: cefTRIAXone 1GM/50ML D5W 50 ML IV ONE (18:05)
[2025-01-04 18:34] LABS: LDL Cholesterol 93 mg/dL (< 100)
[2025-01-04 18:35] LABS: Cholesterol 161 mg/dL (< 200); HDL Cholesterol 51 mg/dL (40-59)
[2025-01-04 18:36] LABS: Triglycerides 129 mg/dL (< 150)
[2025-01-04 20:57] VITALS: O2SAT 95
[2025-01-04 21:09] VITALS: BP 152/78; PULSE 78; RESP 18; TEMP 98.5; O2SAT 93
[2025-01-04 21:50] VITALS: BP 143/74; PULSE 76; RESP 18; TEMP 98.1; O2SAT 91
[2025-01-04] MEDS: ACETAMINOPHEN 325 MG TAB PO PRN (22:14)
[2025-01-05] VITALS (8 sets, daily range): BP systolic 122–150; BP diastolic 58–67; PULSE 62–77; RESP 16–18; TEMP 98–98.7; O2SAT 92–96
[2025-01-05] MEDS: ASPirin-EC 81 mg tab PO SCH (10:00)
--- NOTE | 2025-01-05 10:04 | DVH ---
CLINICAL INDICATION: Right facial weakness. 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 COMPARISON: MRI BRAIN HEAD WO CONTRAST on DOS: 06/18/24. CT dated 01/04/2025 TECHNIQUE: Multisequence multiplanar MRI images of the brain were obtained without contrast. FINDINGS: No acute infarct or hemorrhage. No mass or midline shift. Scattered areas of T2/FLAIR hype rintense signal in the periventricular and subcortical white matter are nonspecific, but most likely sequelae of chronic small vessel ischemic disease. Encephalomalacia in the left frontal lobe left bas al ganglia appears stable. Empty sella incidentally noted. Ventricles and sulci are within normal gallego its. Basal cisterns are patent. Cerebellum, brainstem, and midline structures are within normal limit s. Paranasal sinuses are clear. Orbits are grossly unremarkable. IMPRESSION: 1. No evidence of acute intracranial abnormality. No acute infarct. 2. Nonacute findings as described above.
--- NOTE | 2025-01-05 13:00 | DVHHP2 ---
History of Present Illness History of Present Illness 79 year old female brought in by grandson presents to the ED with chief complaint of R facial numbness and weakness. Patient reports that since last night at 10:30pm, she has been experiencing right sided facial droop and numbness with associated right ear pain, right upper and lower extremity weakness. 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 Patient notes that for the last 2 days she has had right sided ear pain, but it has since resolved. Patient states that she is now experiencing a headache as of today. Patient denies any chest pain, SOB, LOC, dizziness, hearing loss, vision loss, nausea, or vomiting. 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 Therefore she has been admitted to the hospital for further evaluation and management. Past Medical History Cancer, CVA, GERD, High Lipids, HTN, UTI'S Past Surgical History Appendectomy, Hysterectomy, Tonsillectomy Family History: Hypertension Smoke: No ALCOHOL: rare Lives: with Family Review of Systems Review of Systems No fevers chills or sweats. Complains of right ear ache. No headache dizziness or lightheadedness. Other review of systems reviewed normal. Allergies: Coded Allergies: Clopidogrel (Verified Allergy, Severe, 06/14/21) Medications Current Medications Medications Dose Ordered Sig/Abdirahman Route Start Time Stop Time Status Last Admin Dose Admin Aspirin 81 mg DAILY PO 01/05/25 10:00 Atorvastatin Calcium 20 mg HS PO 01/05/25 22:00 Nitroglycerin 0.4 mg Q5MINP PRN SL 01/04/25 18:00 Morphine Sulfate 2 mg Q30M PRN IV 01/04/25 18:00 Ondansetron HCl 4 mg Q6HPRN PRN IV 01/04/25 18:00 Acetaminophen 650 mg Q4HP PRN PO 01/04/25 18:00 01/04/25 22:14 650 MG Clonidine HCl 0.1 mg Q6HP PRN PO 01/04/25 18:00 Exam Vital Signs Vital Signs Date Time Temp Pulse Resp B/P (MAP) Pulse Ox O2 Delivery O2 Flow Rate FiO2 01/05/25 12:30 98.0 76 17 127/60 (82) 93 98.0 01/05/25 08:00 Room Air* 0 21 Exam Elderly female alert awake oriented x3. HEENT neck supple no JVD. Pupils equal round reactive to light. Heart regular rate and rhythm S1 plus S2 without audible murmurs or gallops. Lungs fair air movement chest tube will expansion no rales wheezes. Abdomen is soft nontender nondistended positive bowel sounds. Extremities no edema positive distal pedal pulses. Neurological exam patient has a noticeable right sided facial droop and loss of folds in her right side forehead when looking up. No other focal neurological deficits noted. Labs/Xrays Labs Test 01/04/25 15:10 01/04/25 13:18 01/04/25 12:58 Range/Units Troponin I High Sensitivity 7 </=34 ng/L Urine Color Light-yellow Yellow Urine Clarity Clear Clear Urine pH 6.5 5.0-9.0 Urine Specific [place] 1.008 1.001-1.035 Urine Protein Negative Negative Urine Ketones Trace Negative Urine Blood Negative Negative /uL Urine Nitrite 2+ H Negative Urine Bilirubin Negative Negative Urine Urobilinogen Normal Negative mg/dL Urine Leukocyte Esterase Negative Negative /uL Urine RBC None seen 0 - 4 /hpf Urine Microscopic WBC 2 0-5 /HPF Urine Squamous Epithelial Cells None seen <5 /hpf Urine Bacteria Few H None Seen /hpf Urine Glucose Normal Normal mg/dL White Blood Count 7.1 4.4-10.8 10^3/uL Red Blood Count 4.87 4.0-5.20 10^6/uL Hemoglobin 14.4 12.2-16.2 g/dL Hematocrit 42.3 36.0-46.0 % Mean Corpuscular Volume 86.8 80.0-100.0 fL Mean Corpuscular Hemoglobin 29.6 28.0-32.0 pg Mean Corpuscular Hemoglobin Concent 34.1 32.0-36.0 g/dL Red Cell Distribution Width 13.7 11.8-14.3 % Platelet Count 263 140-450 10^3/uL Mean Platelet Volume 8.0 6.9-10.8 fL Neutrophils (%) (Auto) 45.2 37.0-80.0 % Lymphocytes (%) (Auto) 42.9 10.0-50.0 % Monocytes (%) (Auto) 4.9 0.0-12.0 % Eosinophils (%) (Auto) 4.8 0.0-7.0 % Basophils (%) (Auto) 2.2 H 0.0-2.0 % Neutrophils # (Auto) 3.2 1.6-8.6 10 ^3/uL Lymphocytes # (Auto) 3.0 0.4-5.4 10 ^3/uL Monocytes # (Auto) 0.4 0-1.3 10 ^3/uL Eosinophils # (Auto) 0.3 0-0.8 10 ^3/uL Basophils # (Auto) 0.2 0-0.2 10 ^3/uL Nucleated Red Blood Cells 0.1 % Sodium Level 139 136-145 mmol/L Potassium Level 3.8 3.5-5.1 mmol/L Chloride Level 104 98-107 mmol/L Carbon Dioxide Level 26 20-31 mmol/L Anion Gap 9 5-15 Blood Urea Nitrogen 13 9-23 mg/dL Creatinine 0.61 0.550-1.02 mg/dL Glomerular Filtration Rate Calc 90 >90 mL/min BUN/Creatinine Ratio 21.3 H 10.0-20.0 Serum Glucose 110 H 74-106 mg/dL Hemoglobin A1c 5.6 <5.7 % A1C Calcium Level 10.3 8.7-10.4 mg/dL Total Bilirubin 0.6 0.2-1.0 mg/dL Aspartate Amino Transferase (AST) 22 13-40 U/L Alanine Aminotransferase (ALT) 25 7-40 U/L Alkaline Phosphatase 88 46-116 U/L B-Type Natriuretic Peptide 7.03 0-100 pg/mL Total Protein 8.0 5.7-8.2 g/dL Albumin 5.1 H 3.2-4.8 g/dL Triglycerides Level 129 < 150 mg/dL Cholesterol Level 161 < 200 mg/dL LDL Cholesterol 93 < 100 mg/dL HDL Cholesterol 51 40-59 mg/dL Assessment/Plan Assessment/Plan We will admit to hospital. Get MRI of the brain. 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 Otherwise continue rest of supportive care and treatment. Resume home medications. Physical therapy evaluation. Further clinical management per clinical course and pending evaluations studies. Discussed with the patient regarding care plan. Plan discussed with: Patient, Other My Orders Orders - KENDELL AYALA MD Procedure Category Date Status Time Aspirin Enteric PHA 01/05/25 In Process Coated Tablet 10:00 Atorvastatin (Lipitor) PHA 01/05/25 In Process 22:00 Admit ADMIT 01/04/25 Transmitted 17:55 Nitroglycerin PHA 01/04/25 In Process Sublingual (Ntrostat 18:00 Morphine Sulfate PHA 01/04/25 In Process Injection 18:00 Stat Ekg For Chest [facility] 01/04/25 In Process Pain 17:55 Notify Of Changes [facility] 01/04/25 In Process From Base 17:55 Slitter And Rewinder Machine Operator For [facility] 01/04/25 In Process 24 Hours 17:[address] [facility] 01/04/25 In Process Protocol 17:55 Rhythm Strips Once [facility] 01/04/25 In Process Every Shift 17:55 Oxygen By Nasal RT 01/04/25 Transmitted Cannula 17:[address] [facility] 01/04/25 In Process (Zofran) 18:00 Acetaminophen Tablet [facility] 01/04/25 In Process (Tylenol Tablet) 18:[address] [facility] 01/04/25 In Process (Catapres Tablet) 18:00 Pt Request For Service PT 01/04/25 Logged 17:55 Neuro Checks Q2hrs [facility] 01/04/25 In Process 17:55 Brain Head Wo Contrast MRI 01/05/25 Resulted 17:55 Cardiac DIET 01/05/25 Transmitted Diet-2gna,Lofat,Lochol Breakfast * Swallow Request ST 01/05/25 Transmitted 09:28 Problem List: (1) Facial paralysis/[place] palsy (2) Anxiety KENDELL AYALA MD Jan 05, 2025 13:00
--- NOTE | 2025-01-05 13:05 | DVHPN2 ---
Progress Note - Dictate Date Seen: Jan 05, 2025 Medical Necessity Reason Pt with a Central, PICC or Fol: No Subjective Her MRI of the brain came back normal ruling out any acute stroke or TIA. vital signs Vital Sign Date Time Temp Pulse Resp B/P (MAP) Pulse Ox O2 Delivery O2 Flow Rate FiO2 01/05/25 12:30 98.0 76 17 127/60 (82) 93 98.0 01/05/25 08:00 Room Air* 0 21 Total Intake and Output 01/04/25 01/04/25 01/05/25 15:00 23:00 07:00 Intake Total 150 ml Balance 150 ml medications Current Medications Medications Dose Ordered Sig/Abdirahman Route Start Time Stop Time Status Last Admin Dose Admin Aspirin 81 mg DAILY PO 01/05/25 10:00 Atorvastatin Calcium 20 mg HS PO 01/05/25 22:00 Nitroglycerin 0.4 mg Q5MINP PRN SL 01/04/25 18:00 Morphine Sulfate 2 mg Q30M PRN IV 01/04/25 18:00 Ondansetron HCl 4 mg Q6HPRN PRN IV 01/04/25 18:00 Acetaminophen 650 mg Q4HP PRN PO 01/04/25 18:00 01/04/25 22:14 650 MG Clonidine HCl 0.1 mg Q6HP PRN PO 01/04/25 18:00 objective Alert awake oriented x3. Patient has noticeable loss of right facial forehead folds and facial droop. Complains of right earache. laboratory and microbiology Laboratory Tests 01/04/25 12:58 Test 01/04/25 12:58 Range/Units Serum Glucose 110 H 74-106 mg/dL Assessment/Plan I will start her on oral prednisone and IV acyclovir while in the hospital for 24 hours. Otherwise continue rest of supportive care and treatment. Further clinical management per clinical course. Discussed with the patient regarding care plan. Problems(with codes): (1) Facial paralysis/[place] palsy (2) Anxiety Plan discussed with: Patient KENDELL AYALA MD Jan 05, 2025 13:05
[2025-01-05] MEDS: SODIUM CHLORIDE 0.9% 1,000 ML IV SCH (15:00)
[2025-01-05] MEDS ORDERED: ACYCLOVIR SOD 50MG/ML 500 MG in D5W 5% 100 ML IV SCH (15:00)
[2025-01-05] MEDS ORDERED: ARTIFICIAL TEARS 15ml EACHEYE PRN (15:00)
[2025-01-05] MEDS: OFLOXACIN OTIC(EAR) 0.3 % DROP 5ML RIGHT EAR SCH (15:05)
[2025-01-05] MEDS: ACYCLOVIR SOD 50MG/ML 500 MG in D5W 5% 100 ML IV SCH (15:15)
[2025-01-05] MEDS: HYDROcodone-ACET 5/325MG TAB PO PRN (15:31)
[2025-01-05] MEDS: cefTRIAXone 1GM/50ML D5W 50 ML IV ONE (15:32)
[2025-01-05] MEDS: predniSONE 20 MG TAB PO ONE (15:32)
[2025-01-05] MEDS: ATORVASTATIN 20 MG TAB PO SCH (21:19)
[2025-01-05] MEDS: FAMOTIDINE 20 MG TAB PO SCH (21:19)
[2025-01-06] VITALS (7 sets, daily range): BP systolic 127–165; BP diastolic 66–98; PULSE 66–132; RESP 17–20; TEMP 97.1–98.7; O2SAT 92–97
[2025-01-06 08:04] LABS: Chloride 106 mmol/L (98-107); Potassium 4.3 mmol/L (3.5-5.1); Sodium 137 mmol/L (136-145)
[2025-01-06 08:05] LABS: Anion Gap 9 (5-15); Carbon Dioxide 22 mmol/L (20-31)
[2025-01-06 08:10] LABS: Blood Urea Nitrogen 10 mg/dL (9-23); Calcium 10.6 mg/dL (8.7-10.4); Glucose 126 mg/dL (74-106)
[2025-01-06 08:12] LABS: BUN/Creatinine Ratio 18.9 (10.0-20.0)
[2025-01-06] MEDS: cefTRIAXone 1GM/50ML D5W 50 ML IV SCH (09:55)
[2025-01-06] MEDS: predniSONE 20 MG TAB PO SCH (09:55)
[2025-01-06] MEDS ORDERED: PRED20TA2 PO (16:07)
[2025-01-06] MEDS ORDERED: ACYC400T16 PO (16:07)
[2025-01-06] MEDS ORDERED: FAMO-161 PO (16:07)
[2025-01-06] MEDS ORDERED: IBUP-1454 PO (16:09)
--- NOTE | 2025-01-06 16:09 | DVHDS2 ---
Discharge Summary Date of Admission Jan 04, 2025 at 17:55 Date of Discharge: Jan 06, 2025 Labs/Diagnostic Data: Laboratory Results Test 01/06/25 07:23 01/04/25 15:10 01/04/25 13:18 01/04/25 12:58 Sodium Level 137 mmol/L (136-145) Potassium Level 4.3 mmol/L (3.5-5.1) Chloride Level 106 mmol/L (98-107) Carbon Dioxide Level 22 mmol/L (20-31) Anion Gap 9 (5-15) Blood Urea Nitrogen 10 mg/dL (9-23) Creatinine 0.53 mg/dL (0.550-1.02) Glomerular Filtration Rate Calc 93 mL/min (>90) BUN/Creatinine Ratio 18.9 (10.0-20.0) Serum Glucose 126 mg/dL (74-106) Calcium Level 10.6 mg/dL (8.7-10.4) Troponin I High Sensitivity 7 ng/L (</=34) Urine Color Light-yellow (Yellow) Urine Clarity Clear (Clear) Urine pH 6.5 (5.0-9.0) Urine Specific [place] 1.008 (1.001-1.035) Urine Protein Negative (Negative) Urine Ketones Trace (Negative) Urine Blood Negative /uL (Negative) Urine Nitrite 2+ (Negative) Urine Bilirubin Negative (Negative) Urine Urobilinogen Normal mg/dL (Negative) Urine Leukocyte Esterase Negative /uL (Negative) Urine RBC None seen /hpf (0 - 4) Urine Microscopic WBC 2 /HPF (0-5) Urine Squamous Epithelial Cells None seen /hpf (<5) Urine Bacteria Few /hpf (None Seen) Urine Glucose Normal mg/dL (Normal) White Blood Count 7.1 10^3/uL (4.4-10.8) Red Blood Count 4.87 10^6/uL (4.0-5.20) Hemoglobin 14.4 g/dL (12.2-16.2) Hematocrit 42.3 % (36.0-46.0) Mean Corpuscular Volume 86.8 fL (80.0-100.0) Mean Corpuscular Hemoglobin 29.6 pg (28.0-32.0) Mean Corpuscular Hemoglobin Concent 34.1 g/dL (32.0-36.0) Red Cell Distribution Width 13.7 % (11.8-14.3) Platelet Count 263 10^3/uL (140-450) Mean Platelet Volume 8.0 fL (6.9-10.8) Neutrophils (%) (Auto) 45.2 % (37.0-80.0) Lymphocytes (%) (Auto) 42.9 % (10.0-50.0) Monocytes (%) (Auto) 4.9 % (0.0-12.0) Eosinophils (%) (Auto) 4.8 % (0.0-7.0) Basophils (%) (Auto) 2.2 % (0.0-2.0) Neutrophils # (Auto) 3.2 10 ^3/uL (1.6-8.6) Lymphocytes # (Auto) 3.0 10 ^3/uL (0.4-5.4) Monocytes # (Auto) 0.4 10 ^3/uL (0-1.3) Eosinophils # (Auto) 0.3 10 ^3/uL (0-0.8) Basophils # (Auto) 0.2 10 ^3/uL (0-0.2) Nucleated Red Blood Cells 0.1 % Hemoglobin A1c 5.6 % A1C (<5.7) Total Bilirubin 0.6 mg/dL (0.2-1.0) Aspartate Amino Transferase (AST) 22 U/L (13-40) Alanine Aminotransferase (ALT) 25 U/L (7-40) Alkaline Phosphatase 88 U/L (46-116) B-Type Natriuretic Peptide 7.03 pg/mL (0-100) Total Protein 8.0 g/dL (5.7-8.2) Albumin 5.1 g/dL (3.2-4.8) Triglycerides Level 129 mg/dL (< 150) Cholesterol Level 161 mg/dL (< 200) LDL Cholesterol 93 mg/dL (< 100) HDL Cholesterol 51 mg/dL (40-59) Other Laboratory Tests 01/06/25 07:23 01/04/25 12:58 Final Diagnosis/Problems List Franco's palsy Discharge Disposition: Home Discharge Instruct/Medications Diet: Consistent carbohydrate, Cardiac 2g Na,low cholest Activity: No Restrictions, As Tolerated Follow Up/Referral: With the PCP next week and referral to neurologist dr.Sonia Villarreal for evaluation of Franco's palsy Medications: Take medications as prescribed Discharge Statement: "Patient was advised to return to the ER or call 911 if any headaches, dizziness, shortness of breath, chest pain, abdominal pain, bleeding, fevers, or worsening of medical condition. Patient was counseled about treatment plan, medications, possible side effects, patientverbalized understanding. All questions were answered to the best of my ability. This discharge took greater then 30 minutes in planning, reviewing documentation, counseling the patient, and discussing with other team members." ASSESSMENT ASSESSMENT Assessment Franco's palsy KENDELL AYALA MD Jan 06, 2025 16:09
[2025-01-06] MEDS: cloNIDine HCL 0.1 MG TAB PO PRN (17:26)
== END 2025-01-06 21:38 | disposition home or self-care (01) | DRG 74 ==
LOC: ER 12:17 → OVERFLOW 17:55 → TELE-CENTR 20:55
PROVIDERS: ADMIT Hospitalist; ATTEND Hospitalist
DX: G51.0 Bell's palsy (principal); N39.0 Urinary tract infection, site not specified; K21.9 Gastro-esophageal reflux disease without esophagitis; R47.1 Dysarthria and anarthria; F41.9 Anxiety disorder, unspecified; I10 Essential (primary) hypertension; E78.5 Hyperlipidemia, unspecified; Z90.710 Acquired absence of both cervix and uterus; Z82.49 Family history of ischemic heart disease and other diseases of the circulatory system; Z88.8 Allergy status to other drugs, medicaments and biological substances; Z86.73 Personal history of transient ischemic attack (TIA), and cerebral infarction without residual deficits; Z79.899 Other long term (current) drug therapy
CPT/HCPCS: 36415; 70450; 70496; 70498; 70551; 71045; 80048; 80053; 80061; 81001; 83036; 83880; 84484; 85025; 92610; 93005; 97110; 97116; 97163; 97530; 99291; G0378; J7060

== ENCOUNTER 2025-04-10 21:34 | Emergency (ER) | payer MEDICAID, MEDICARE, OTHER ==
[~2025-04-10] VITALS: Ht 152.4 cm; Wt 59.0 kg
[~2025-04-10 21:34] MED LIST changes: +ACYC400T16 PO; -CEFD300C2 PO; +FAMO-161 PO; +IBUP-1454 PO; +PRED20TA2 PO
[2025-04-10 21:45] VITALS: BP 154/83; PULSE 85; RESP 15; TEMP 98.3; O2SAT 99
--- NOTE | 2025-04-10 22:08 | ED.PDOC ---
HPI Comments PT BIBA FOR RIGHT EYE BROW LACERATION X1 HOUR AGO. PT STATED SHE HAD A TRIP & FALL ON UNKNOWN OBJECT ON FLOOR, FELL FORWARD, AND HIT RIGHT EYE BROW ON CONCRETE. (-) LOC, (-) N/V. (+) BLOOD THINNERS (ASPRIN 81MG DAILY). RIGHT EYE BROW LAC APPROX. 1/2 TO 1 INCH IN LENGTH. BLEEDING CONTROLLED. GCS-15, ALL VSS. Chief Complaint: Laceration Time Seen by MD: 21:45 Primary Care Provider: TERRENCE Dela Cruz Notes: Nurses Notes, Medications, Allergies Allergies: Coded Allergies: Clopidogrel (Verified Allergy, Severe, 06/14/21) Home Meds Active Scripts Ibuprofen (Ibuprofen) 600 Mg Tab, 1 TAB PO TID PRN, #14 TAB Prov:KENDELL AYALA MD 01/06/25 Acyclovir (ZOVIRAX TABLET) 400 Mg Tb, 1 TAB PO TID, #21 TAB Prov:KENDELL AYALA MD 01/06/25 Famotidine (Pepcid AC) 20 Mg Tab, 20 MG PO DAILY, #10 TAB Prov:KENDELL AYALA MD 01/06/25 Prednisone (Prednisone) 20 Mg Tab, 60 MG PO DAILY@BREAKFAST, #15 MG Take three tablets of 20mg (60 mg) daily for five days Prov:KENDELL AYALA MD 01/06/25 Atorvastatin Calcium (ATORVASTATIN CALCIUM) 20 Mg Tab, 1 TAB PO DAILY, #60 TAB 5 Refills Prov:TAMMIE MILLER MD 06/18/24 Aspirin (Aspir-Low) 81 Mg Tab, 81 MG PO DAILY, #60 TAB Prov:TAMMIE MILLER MD 06/18/24 Information Source: Patient Mode of Arrival: EMS Complexity: Simple Laceration Length (cm): 2 Past Medical History PAST MEDICAL HISTORY: Cancer, CVA, GERD, High Lipids, HTN, UTI'S Surgical History: Appendectomy, Hysterectomy, Tonsillectomy BACK FILLER 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 all BACK FILLER OPERATOR Hx Family History Family History: Reviewed,noncontributory to illness, Family hx of Cancer Social History Smoker: Non-Smoker Alcohol: Denies ETOH Use Drugs: Denies Drug Use Lives In: Home Constitutional: denies: chills, diaphoresis, fatigue, fever, malaise, sweats, weakness, others EENTM: reports: others (RIGHT PERIORBITAL AND EYELID SWELLING); denies: blurred vision, double vision, ear bleeding, ear discharge, ear drainage, ear pain, ear ringing, eye pain, eye redness, hearing loss, mouth pain, mouth swelling, nasal discharge, nose bleeding, nose congestion, nose pain, photophobia, tearing, throat pain, throat swelling, voice changes Respiratory: denies: cough, hemoptysis, orthopnea, SOB at rest, shortness of breath, SOB with excertion, stridor, wheezing, others Cardiovascular: denies: chest pain, dizzy spells, diaphoresis, Dyspnea on exertion, edema, irregular heart beat, left arm pain, lightheadedness, palpitations, PND, syncope, others Gastrointestinal: denies: abdomen distended, abdominal pain, blood streaked bowels, constipated, diarrhea, dysphagia, difficulty swallowing, hematemesis, melena, nausea, poor appetite, poor fluid intake, rectal bleeding, rectal pain, vomiting, others Genitourinary: denies: abnormal vagina bleeding, burning, dyspareunia, dysuria, flank pain, frequency, hematuria, incontinence, pain, , vagina discharge, urgency, others Neurological: denies: dizziness, fainting, headache, left sided numbness, left sided weakness, numbness, paresthesia, pre-existing deficit, right sided numbness, right sided weakness, seizure, speech problems, tingling, tremors, weakness, others Musculoskeletal: denies: back pain, gout, joint pain, joint swelling, muscle pain, muscle stiffness, neck pain, others Integumetry: reports: laceration (ABOVE RIGHT EYE); denies: bruises, change in color, change in hair/nails, dryness, lesions, lumps, rash, wounds, others Hematologic/Lymphatic: denies: anemia, blood clots, easy bleeding, easy bruising, swollen glands, others Endocrine: denies: excessive hunger, excessive sweating, excessive thirst, excessive urination, flushing, intolerance to cold, intolerance to heat, unexplained weight gain, unexplained weight loss, others Psychiatric: denies: anxiety, bipolar disorder, depression, hopeless, panic disorder, schizophrenia, sleepless, suicidal, others Physical Exam General Appearance: No Apparent Distress, Normal HEENT: Head (RIGHT EYELID AND PERIORBITAL AREA NOTED EDEMA AND ECCHYMOSIS. ALL MORGAN OF GAZE INTACT. ), Pharynx Normal, TMs Normal Neck: Full Range of Motion, Non-Tender Respiratory: Chest Non-Tender, Lungs Clear, No Respiratory Distress, Normal Breath Sounds Cardiovascular: No Edema, No JVD, No Murmur, No Gallop, Normal Peripheral Pulses, Regular Rate/Rhythm Breast Exam: Deferred Gastrointestinal: No Organomegaly, Non Tender, No Pulsatile Mass, Normal Bowel Sounds, Soft Genitalia: Deferred Pelvic: Deferred Rectal: Deferred Extremities: Normal capillary refill, Normal inspection, Normal range of motion, Non-tender, No pedal edema Musculoskeletal : Apperance: Normal Neurologic: Alert, No Motor Deficits, Normal Affect, Normal Mood, No Sensory Deficits Cerebellar Function: Normal Reflexes: Normal Skin: Dry, Lacerations (1.5 CM LACERATION ABOVE RIGHT EYELID UNDER EYEBROW OBVIOUS FOREIGN BODY BLEEDING CONTROLLED), Normal Color, Warm Lymphatic: No Adenopathy Was a procedure done? Was a procedure done?: Yes Sedation Sedation?: No Informed consent obtained: Yes Laceration Repair : Location ABOVE RIGHT EYE Length 1.5 CM Anesthetic: LET Laceration Repair Prep: Saline, by Irrigation Laceration Repair Wound Comple: epidermis/dermis repair Laceration Repair: Number of sutures (2 ABSORBABLE), Simple, Nothing Informed consent obtained: Yes Risks, benefits, and alternati: Yes Notes PATIENT TOLERATED WELL WITH MINIMAL BLOOD LOSS Differential diagnosis Generic Laceration: Hematoma, Fracture, Retained Foriegn Body, Neurovascular Injury Differential Diagnosis: Closed Head Injury, Skull Fracture X-Ray, Labs, Meds, VS Vital Signs Date Time Temp Pulse Resp B/P (MAP) Pulse Ox O2 Delivery O2 Flow Rate FiO2 04/10/25 21:45 98.3 85 15 154/83 (106) 99 98.3 Current Medications Medications (Trade) Dose Ordered Sig/Abdirahman Route Start Time Stop Time Status Last Admin Diphtheria/ Tetanus/Acell Pertussis (Boostrix T-Dap) 0.5 ml ONCE ONCE IM 04/11/25 00:45 04/11/25 00:46 DC 04/11/25 00:42 X-Ray, Labs, Meds, VS Comment CT BRAIN SHOWS NO ACUTE BLEEDS. T NECK SHOWS NO SUBLUXATIONS, FRACTURES, OSSEOUS LESIONS. SEE PROCEDURE NOTE, PATIENT GIVEN NORCO 5 MG P.O. REPORTS IMPROVEMENT PAIN AND FUNCTION REQUESTING DISCHARGE AT THIS TIME. PATIENT TO BE DISCHARGED WITH HER DAUGHTER. [id number] TYLENOL NEEDED FOR THE PAIN PER LABELED DOSING INSTRUCTIONS. ADVISED TO REST INCREASE P.O. FLUIDS WITH ELECTROLYTES. FOLLOW UP WITH HER PCP IN TWO DAYS. ADVISED ON ER PRECAUTIONS PATIENT AND DAUGHTER INDICATED UNDERSTANDING AND AGREE WITH DISCHARGE PLAN OF CARE Time of 1ST Reevaluation: 21:45 Reevaluation 1ST: Unchanged Time of 2ND Reevaluation: 00:48 Reevaluation 2ND: Improved Patient Education/Counseling: Diagnosis, Treatment, Prognosis, Need For Follow Up Family Education/Counseling: No Family Present Departure 1 Departure Time of Disposition: 00:47 Impression: Primary Impression: Laceration of face without complication Qualified Codes: S01.81XA - Laceration without foreign body of other part of head, initial encounter Additional Impressions: Contusion of right eyelid and periocular area Qualified Codes: S00.11XA - Contusion of right eyelid and periocular area, initial encounter Ground-level fall Disposition: 01 HOME / SELF CARE / HOMELESS Condition: Stable Discharged With: Self Critical Care Note Critical Care Time?: No Stability Stability form required: ALLYSON Osorio Apr 10, 2025 22:08
--- NOTE | 2025-04-10 23:15 | DVH ---
CT HEAD WITHOUT CONTRAST INDICATION: Status post head injury COMPARISON: CT STROKE CTH on DOS: 01/04/25, MRI head 01/05/25 TECHNIQUE: CT of the head without intravenous contrast. RADIATION DOSE: CTDIvol: mGy, DLP: mGy*cm FINDINGS: There is no evidence of intracranial hemorrhage, acute infarct, extra-axial collection, mass effect, midline shift, herniation or hydrocephalus. Again noted is an old infarct in the left basal ganglia/ malin radiata which has been present on prior studies dating back to at least May 2021. Very m ild chronic white matter microvascular ischemic change. Mild ventricular and sulcal enlargement relat ed to mild cerebral volume loss. Soft tissue swelling/contusion in right periorbital region/forehead. No calvarial abnormality/fractur e. Paranasal sinuses, mastoid air cells and middle ear cavities are clear. Globes appear unremarkable . IMPRESSION: No hemorrhage or other acute intracranial abnormality. Old left basal ganglia infarct. Soft tissue swelling/contusion in right periorbital region/forehead. No calvarial fracture.
--- NOTE | 2025-04-10 23:19 | DVH ---
EXAM: CT CERVICAL WITHOUT CONTRAST HISTORY: Status post fall neck pain/head injury COMPARISON: None CTDIvol mGy, DLP mGy*cm. TECHNIQUE: Multiple axial CT images of the spine were obtained using bone algorithm. Axial and coron al reformatting was done. Bone and soft tissue windows were reviewed. FINDINGS: No prevertebral soft tissue abnormality noted. There is normal alignment of the cervical spine. The c ervical vertebral bodies appear unremarkable with no evidence of fracture or dislocation. Paraspinal soft tissues appear unremarkable. Mild cervical spondylosis without spinal canal stenosis. Multilevel facet joint OA. IMPRESSION: No evidence of cervical spine fracture or dislocation.
[2025-04-11] MEDS: TETANUS-DIPTH-ACEL PERTUSSIS 0.5ML SYR Tdap IM ONE (00:42)
[2025-04-11] MEDS: LET TOPICAL SOLN 5 ML TOP ONE (00:46)
[2025-04-11] MEDS: HYDROcodone-ACET 5/325MG TAB PO ONE (01:16)
[2025-04-11] MEDS ORDERED: ACET-6 PO (01:34)
== END 2025-04-11 01:42 | disposition home or self-care (01) ==
LOC: EDBD 21:34 → ER 21:34
DX: S01.111A Laceration without foreign body of right eyelid and periocular area, initial encounter (principal); I10 Essential (primary) hypertension; E78.5 Hyperlipidemia, unspecified; K21.9 Gastro-esophageal reflux disease without esophagitis; Z79.82 Long term (current) use of aspirin; Z79.899 Other long term (current) drug therapy; Z86.73 Personal history of transient ischemic attack (TIA), and cerebral infarction without residual deficits; Z87.440 Personal history of urinary (tract) infections; Z90.49 Acquired absence of other specified parts of digestive tract; Z90.710 Acquired absence of both cervix and uterus; Z88.8 Allergy status to other drugs, medicaments and biological substances; W01.0XXA Fall on same level from slipping, tripping and stumbling without subsequent striking against object, initial encounter; Y93.89 Activity, other specified; Y92.89 Other specified places as the place of occurrence of the external cause; Y99.8 Other external cause status
CPT/HCPCS: 12011; 70450; 72125; 90471; 90715